=== PATIENT | female | born 1945 | race Caucasian/White ===

== ENCOUNTER 2017-12-31 09:36 | Emergency (ER) | payer MEDICARE ==
[~2017-12-31] VITALS: Ht 170.2 cm; Wt 89.0 kg
[~2017-12-31 09:36] MED LIST: ATOR20TA42; BACT800T5 PO; PREM0.622; SM A81CH CHEW
[2017-12-31 09:44] VITALS: BP 172/81; PULSE 90; RESP 16; TEMP 99.4; O2SAT 95
[2017-12-31] MEDS ORDERED: ESTR.3 PO (09:59)
[2017-12-31] MEDS ORDERED: LIPI20TA PO (09:59)
[2017-12-31 10:00] VITALS: BP 172/81; PULSE 90; RESP 16; TEMP 99.4; O2SAT 95
[2017-12-31] MEDS ORDERED: AZIT250T3 PO (10:40)
[2017-12-31] MEDS ORDERED: BENZ100 PO (10:40)
--- NOTE | 2017-12-31 10:41 | PD ---
HPI Chief Complaint: Cold / Flu Symptoms Time Seen by Provider: 10:08 Travel History International Travel<30 days: Yes Contact w/Intl Traveler<30days: Yes Name of Country Traveled to: [facility] Traveled to known affect area: No History of Present Illness HPI This is a 72-year-old female here with productive cough 3 days. Patient reports she had what she believed was an upper respiratory infection for the last week including nasal congestion and sore throat. She then developed cough with yellow sputum 3 days ago. Denies fever chills. No shortness of breath. No chest pain. Symptom severity is moderate. No aggravating or alleviating factors. PFSH Past Medical History Autoimmune Disease: No Blood Disorders: No Cancer: Yes (BASAL CELL ) Cardiovascular Problems: Yes (CHOL) High Cholesterol: Yes Chemotherapy: No Diabetes: No Diminished Hearing: No Endocrine: No Gastrointestinal Disorders: No Genitourinary: No Musculoskeletal: No Neurologic: No Psychiatric: No Reproductive: No Respiratory: No Radiation Therapy: No ?: Not Past Surgical History Abdominal Surgery: No Cardiac Surgery: No Ear Surgery: No Endocrine Surgery: No Eye Surgery: No Genitourinary Surgery: No Gynecologic Surgery: Yes (HYSTERECTOMY) Hysterectomy: Yes Neurologic Surgery: No Oral Surgery: No Thoracic Surgery: No Other Surgery: Yes (RT SHOULDER ROTATOR) Social History Alcohol Use: Yes (RARELY) Tobacco Use: No Substance Use: No Allergies-Medications (Allergen,Severity, Reaction): Coded Allergies: No Known Allergies (Verified Adverse Reaction, Unknown, 12/31/17) Reported Meds & Prescriptions Reported Meds & Active Scripts Active Reported Premarin (Estrogens Conjugated) 0.3 Mg Tab 0.3 Mg PO DAILY Lipitor (Atorvastatin Calcium) 20 Mg Tab 20 Mg PO HS Review of Systems Except as stated in HPI: all other systems reviewed are Neg General / Constitutional: No: Fever Eyes: No: Visual changes HENT: Positive: Congestion Cardiovascular: No: Chest Pain or Discomfort Respiratory: Positive: Cough Gastrointestinal: No: Abdominal Pain Genitourinary: No: Dysuria Musculoskeletal: No: Pain Skin: No Rash Physical Exam Narrative GENERAL: Alert and well-appearing 72-year-old female SKIN: Warm and dry. HEAD: Normocephalic. EYES: No scleral icterus. No injection or drainage. NECK: Supple, trachea midline. No JVD or lymphadenopathy. CARDIOVASCULAR: Regular rate and rhythm without murmurs, gallops, or rubs. RESPIRATORY: Breath sounds equal bilaterally. No accessory muscle use. Rhonchorous cough GASTROINTESTINAL: Abdomen soft, non-tender, nondistended. MUSCULOSKELETAL: No cyanosis, or edema. BACK: Nontender without obvious deformity. No CVA tenderness. Data Data Last Documented VS Vital Signs Date Time Temp Pulse Resp B/P (MAP) Pulse Ox O2 Delivery O2 Flow Rate FiO2 12/31/17 10:00 99.4 90 16 172/81 (111) 95 12/31/17 09:44 Room Air MDM Medical Decision Making Medical Screen Exam Complete: Yes Emergency Medical Condition: Yes Differential Diagnosis Bronchitis, pneumonia, URI Narrative Course 72-year-old female here with productive cough. She is nontoxic appearing. Vital signs are stable. she will be treated with azithromycin and Tessalon Perles. Diagnosis Primary Impression: Bronchitis Referrals: Primary Care Physician Additional Instructions: Medication as directed. Follow-up the primary doctor. Return if he develop new or worsening symptoms. Scripts Benzonatate (Tessalon Perles) 100 Mg Cap 200 MG PO TID Y for COUGH, #12 CAP 0 Refills Prov: Alma Rosa May 12/31/17 Azithromycin (Azithromycin) 250 Mg Tab 250 MG PO DIRECTED for Infection, #6 TAB 0 Refills Take 2 tabs (500 mg) on day 1 then 1 tab daily x 4 days. Prov: Alma Rosa May 12/31/17 Disposition: 01 DISCHARGE HOME Condition: Stable Alma Rosa May Dec 31, 2017 10:41
== END 2017-12-31 10:54 | disposition home or self-care (01) ==
LOC: PHEFT 09:36
DX: J40 Bronchitis, not specified as acute or chronic (principal); E78.00 Pure hypercholesterolemia, unspecified
CPT/HCPCS: 99283